=== PATIENT | male | born 1995 | race African-American/Black ===

== ENCOUNTER 2017-04-09 15:12 | Emergency (ER) | payer SELFPAY ==
[~2017-04-09 15:12] MED LIST: Z.0.NO CURRENT MEDS
[2017-04-09 15:14] VITALS: BP 115/70; PULSE 116; RESP 14; TEMP 100; O2SAT 98
[2017-04-09] MEDS ORDERED: ACETAMINOPHEN 500 MG CPLT PO ONE (15:30)
--- NOTE | 2017-04-09 16:00 | RADRPT ---
EXAM DATE/TIME: 04/09/2017 15:46 [place] COMPARISON: No previous studies available for comparison. INDICATIONS : Headache, short of breath MEDICAL HISTORY : None. SURGICAL HISTORY : None. ENCOUNTER: Initial ACUITY: 1 day PAIN SCORE: 0/10 LOCATION: Bilateral chest FINDINGS: PA and lateral views of the chest demonstrate the lungs to be symmetrically aerated without evidence of mass, infiltrate or effusion. The cardiomediastinal contours are unremarkable. Osseous structure s are intact. CONCLUSION: No acute disease. Luis Armando Wilson MD FACR on April 09, 2017 at 15:58 Board Certified Radiologist. This report was verified electronically.
[2017-04-09 16:36] LABS: AUTOMATED NEUTROPHIL # 3.9 TH/MM3 (1.8-7.7); BASOPHIL % 0.3 % (0.0-2.0); EOSINOPHIL % 0.1 % (0.0-4.0); HEMATOCRIT 42.2 % (39.0-51.0); HEMO FLAGS DIFF FINAL; LYMPH % 18.8 % (9.0-44.0); LYMPHOCYTE # 1.1 TH/MM3 (1.0-4.8); MEAN CELL VOLUME 88.9 FL (80.0-100.0); MEAN CORPUSCULAR HEMOGLOBIN 30.7 PG (27.0-34.0); MEAN CORPUSCULAR HGB CONC 34.5 % (32.0-36.0); MONO % 11.5 % (0.0-8.0); NEUT % 69.3 % (16.0-70.0); PLATELET COUNT 196 TH/MM3 (150-450); RED BLOOD COUNT 4.75 MIL/MM3 (4.50-5.90); RED CELL DISTRIBUTION WIDTH 13.2 % (11.6-17.2); WHITE BLOOD COUNT 5.7 TH/MM3 (4.0-11.0)
[2017-04-09 16:53] LABS: BICARBONATE 26.2 MEQ/L (21.0-32.0); POTASSIUM 3.6 MEQ/L (3.5-5.1)
--- NOTE | 2017-04-09 17:37 | PD ---
HPI . Pain with Breathing Chief Complaint: Cold / Flu Symptoms Time Seen by Provider: 17:00 Travel History International Travel<30 days: No Contact w/Intl Traveler<30days: No Traveled to known affect area: No History of Present Illness HPI Pt is a 21yo male who presents to the ED with fever, chills, headache, and pain with breathing, and diaphoresis x 1 day. He recently had cough that has since subsided. Pt denies n/v/d. Pt describes the pain as "it comes in 3's...one attack in sequence to another" and rates the pain as 7/10. The pain with breathing radiates to his lower back. Pt states that tylenol has worked to relieve his headache and fever but he still complains of pain with breathing/ back pain. Pt has no significant PSurgHx. PMHx for antione is positive for Bronchitis x 6-7 years, a heart murmur since childhood, and a previous episode of similar back pain that was diagnosed as strep throat when he was in college in [place]. [facility] Past Medical History Medical History: Denies Significant Hx Cardiovascular Problems: Yes (HEART MURMUR) Diminished Hearing: No Respiratory: Yes (BRONCHITIS) Immunizations Current: Yes Tetanus Vaccination: Unknown Influenza Vaccination: No Past Surgical History Surgical History: No Previous Surgery Social History Alcohol Use: Yes (occ) Tobacco Use: Yes (BLACK AND MILDS) Substance Use: No Allergies-Medications (Allergen,Severity, Reaction): Coded Allergies: No Known Allergies (Unverified Adverse Reaction, Unknown, 04/09/17) Reported Meds & Prescriptions Reported Meds & Active Scripts Active No Active Prescriptions or Reported Medications Review of Systems Except as stated in HPI: all other systems reviewed are Neg General / Constitutional: Positive: Fever, Chills Eyes: No: Diploplia, Blurred Vision, Photophobia, Drainage, Redness, Foreign Body Sensation, Pain, Tearing, Blind Spots, Visual changes, Blindness, Other HENT: Positive: Headaches Cardiovascular: Positive: Diaphoresis Respiratory: Positive: Cough, Pleuritic Pain Gastrointestinal: No: Nausea, Vomiting, Diarrhea, Abdominal Pain, Hematemesis, Hematochezia, Constipation, Changes in Bowel Habits, Indigestion, Dysphagia, Loss of Appetite, Other Genitourinary: No: Urgency, Frequency, Dysuria, Nocturia, Hematuria, Decreased Urinary Output, Oliguria, Hesitancy, Dribbling, Incontinence, Pelvic Pain, Flank Pain, Dyspareunia, Discharge, Dysmenorrhea, Menorrhagia, Metorrhagia, Vaginal Bleeding, Other Musculoskeletal: Positive: Pain Skin: No Rash, No Itching, No Dryness, No Lumps, No Hives, No Change in Pigmentation, No Change in nails, No Alopecia, No Lesions, No Breast Lumps, No Breast Tenderness, No Breast Swelling, No Other Neurologic: No: Weakness, Dizziness, Syncope, Focal Abnormalities, Coordination Problem, Tremor, Ataxia, Headache, Change in Mentation, Slurred Speech, Paresthesia, Incontinence, Seizures, Sensory Disturbance, Other Psychiatric: No: Anxiety, Depression, Suicidal Ideations, Disorder of Thought, Mood Disorder, Substance Abuse, Homicidal Ideation, Other Physical Exam Narrative GENERAL: Awake and alert and oriented. NAD. HEAD: atraumatic, normocephalic. ENT: TM's clear and visible, no exudate or erythema noted. no lymphadenopathy. NECK: supple, no swelling. SKIN: warm, dry, no tinting or cyanosis. CV: RRR no rubs or gallops noted. no murmur appreciated at time of exam. RESPIRATORY: CTA bilat. no rales, wheezes, or rhonchi. good aeration and breath sounds throughout. ABDOMEN: soft, nontender, nondistended, normoactive bowel sounds. PSYCH: appropriate mood and affect. Data Data Last Documented VS Vital Signs Date Time Temp Pulse Resp B/P (MAP) Pulse Ox O2 Delivery O2 Flow Rate FiO2 04/09/17 17:45 100.0 04/09/17 16:45 Room Air 04/09/17 15:14 116 14 98 Orders Orders Chest, Pa & Lat (04/09/17 ) Influenzae A/B Antigen (04/09/17 15:27) Acetaminophen (Tylenol) (04/09/17 15:30) Complete Blood Count With Diff (04/09/17 15:27) Basic Metabolic Panel (Bmp) (04/09/17 15:27) Ed Discharge Order (04/09/17 18:06) Labs Laboratory Tests Test 04/09/17 16:02 White Blood Count 5.7 TH/MM3 Red Blood Count 4.75 MIL/MM3 Hemoglobin 14.6 GM/DL Hematocrit 42.2 % Mean Corpuscular Volume 88.9 FL Mean Corpuscular Hemoglobin 30.7 PG Mean Corpuscular Hemoglobin Concent 34.5 % Red Cell Distribution Width 13.2 % Platelet Count 196 TH/MM3 Mean Platelet Volume 8.2 FL Neutrophils (%) (Auto) 69.3 % Lymphocytes (%) (Auto) 18.8 % Monocytes (%) (Auto) 11.5 % Eosinophils (%) (Auto) 0.1 % Basophils (%) (Auto) 0.3 % Neutrophils # (Auto) 3.9 TH/MM3 Lymphocytes # (Auto) 1.1 TH/MM3 Monocytes # (Auto) 0.7 TH/MM3 Eosinophils # (Auto) 0.0 TH/MM3 Basophils # (Auto) 0.0 TH/MM3 CBC Comment DIFF FINAL Differential Comment Blood Urea Nitrogen 8 MG/DL Creatinine 1.04 MG/DL Random Glucose 80 MG/DL Calcium Level 8.8 MG/DL Sodium Level 138 MEQ/L Potassium Level 3.6 MEQ/L Chloride Level 103 MEQ/L Carbon Dioxide Level 26.2 MEQ/L Anion Gap 9 MEQ/L Estimat Glomerular Filtration Rate 108 ML/MIN MDM Medical Decision Making Medical Screen Exam Complete: Yes Emergency Medical Condition: Yes Differential Diagnosis Influenza vs. costochondritis vs. muscle strain Narrative Course Pt is a 21yo male who presents to the ED with fever, chills, headache, pain with breathing that radiates to his back (7/10), and diaphoresis x 1 day. Patient's fever and headache are relieved with tylenol, but he continues to have the inspiratory pain. Workup for this patient included CBC, CMP, CXR, and influenza panel. So far the workup has been negative and awaiting influenza results. Will monitor patient status and treat symptoms. Diagnosis Primary Impression: Viral syndrome Patient Instructions: General Instructions, Viral Syndrome (DC) Additional Instructions: Lots of fluids. Tylenol and ibuprofen as needed for fever and body aches. Scripts No Active Prescriptions or Reported Meds Disposition: 01 DISCHARGE HOME Condition: Stable Nancy Holguin MD Apr 09, 2017 17:37
[2017-04-09 17:45] VITALS: TEMP 100
[2017-04-09 19:01] VITALS: BP 115/76
== END 2017-04-09 18:55 | disposition home or self-care (01) ==
LOC: NEPD 15:12
DX: B34.9 Viral infection, unspecified (principal); R51 Headache; R05 Cough; R61 Generalized hyperhidrosis; M54.9 Dorsalgia, unspecified
CPT/HCPCS: 71020; 80048; 85025; 87804; 99284

== ENCOUNTER 2017-04-13 16:36 | Emergency (ER) | payer SELFPAY ==
[~2017-04-13] VITALS: Ht 170.2 cm; Wt 70.0 kg
[2017-04-13 16:38] VITALS: BP 129/71; PULSE 73; RESP 14; TEMP 99.7; O2SAT 97
[2017-04-14] MEDS ORDERED: TYLE325T PO (11:57)
[2017-04-14] MEDS ORDERED: PENI500T PO (11:57)
== END 2017-04-13 19:13 | disposition left against medical advice (07) ==
LOC: NED 16:36
DX: J00 Acute nasopharyngitis [common cold] (principal)
CPT/HCPCS: 99281

== ENCOUNTER 2017-04-14 10:11 | Emergency (ER) | payer SELFPAY ==
[~2017-04-14] VITALS: Ht 170.2 cm; Wt 71.0 kg
[2017-04-14 10:13] VITALS: BP 123/72; PULSE 75; RESP 16; TEMP 98.4; O2SAT 98
[2017-04-14] MEDS ORDERED: IBUPROFEN SUSP 100 MG/5 ML UDC PO ONE (10:45)
[2017-04-14] MEDS ORDERED: DEXAMETHASONE SOD PHOS 4 MG/ML VIAL IM ONE (10:45)
--- NOTE | 2017-04-14 10:48 | PD ---
HPI Chief Complaint: ENT Complaint Time Seen by Provider: 10:31 Travel History International Travel<30 days: No Contact w/Intl Traveler<30days: No Traveled to known affect area: No History of Present Illness HPI 21yo M with no PMH presents to the ED with throat pain for 2 days. Said he had fever today of 103F and took acetaminophen 2 hours ago. Pt was seen here on and diagnosed with viral syndrome and said the headache and cough had resolved. Pt currently only complaining of throat pain and odynophagia. Denies any cough, chest pain, sob, n/v, abdominal pain, focal weakness or numbness. Said he gets this every year around the same time for 3 years and is suppose to have his tonsils remove but did not. PFSH Past Medical History Hx Anticoagulant Therapy: No Cardiovascular Problems: No Chemotherapy: No Cerebrovascular Accident: No Diabetes: No Diminished Hearing: No Respiratory: No Immunizations Current: Yes Social History Alcohol Use: Yes (occ) Tobacco Use: Yes (BLACK AND MILDS) Substance Use: No Allergies-Medications (Allergen,Severity, Reaction): Coded Allergies: No Known Allergies (Unverified Adverse Reaction, Unknown, 04/14/17) Reported Meds & Prescriptions Reported Meds & Active Scripts Active Tylenol (Acetaminophen) 325 Mg Tab 650 Mg PO Q6H PRN Penicillin V Potassium 500 Mg Tab 500 Mg PO BID 10 Days Review of Systems Except as stated in HPI: all other systems reviewed are Neg Physical Exam Narrative GENERAL: 21yo M in mild distress. SKIN: Focused skin assessment warm/dry. HEAD: Atraumatic. Normocephalic. EYES: Pupils equal and round. No scleral icterus. No injection or drainage. ENT: Throat: +Left tonsillar edema and exudate. +Erythema. Uvula midline. Patent airway. NECK:+TTP left cervical lymphadenopathy. CARDIOVASCULAR: Regular rate and rhythm. No murmur appreciated. RESPIRATORY: No accessory muscle use. Clear to auscultation. Breath sounds equal bilaterally. GASTROINTESTINAL: Abdomen soft, non-tender, nondistended. MUSCULOSKELETAL: No obvious deformities. No clubbing. No cyanosis. No edema. NEUROLOGICAL: Awake and alert. No obvious cranial nerve deficits. Motor grossly within normal limits. Normal speech. PSYCHIATRIC: Appropriate mood and affect; insight and judgment normal. Data Data Last Documented VS Vital Signs Date Time Temp Pulse Resp B/P (MAP) Pulse Ox O2 Delivery O2 Flow Rate FiO2 04/14/17 10:28 16 04/14/17 10:13 98.4 75 123/72 (89) 98 Room Air Orders Orders Group A Rapid Strep Screen (04/14/17 10:41) Dexamethasone Inj (Decadron Inj) (04/14/17 10:45) Ibuprofen Liq (Motrin Liq) (04/14/17 10:45) Strep Culture (Group A) (04/14/17 10:45) MDM Medical Decision Making Medical Screen Exam Complete: Yes Emergency Medical Condition: Yes Differential Diagnosis Strep pharyngitis vs. viral pharyngitis Narrative Course 21yo M with throat pain and fever for 2 days. Vital signs normal. Pt given dexamethasone and ibuprofen and reevaluated at bedside. States he feels much better and can swallow now. Group A strep negative. However, pt meets all 4 CENTER criteria so will cover with penicillin. He is nontoxic appearing and tolerating PO. Return precautions given. Diagnosis Primary Impression: Pharyngitis Qualified Codes: J02.9 - Acute pharyngitis, unspecified Referrals: Jason Zhang MD as needed Patient Instructions: General Instructions Departure Forms: Tests/Procedures Additional Instructions: Please follow up with ENT as needed or primary care physician. Return to the ED if symptoms worsen. Med/Other Pt SpecificInfo: Prescription(s) given Scripts Acetaminophen (Tylenol) 325 Mg Tab 650 MG PO Q6H Y for PAIN SCALE 1 TO 4, #20 TAB 0 Refills Prov: Abi Rosado 04/14/17 Penicillin V Potassium (Penicillin V Potassium) 500 Mg Tab 500 MG PO BID for Infection for 10 Days, #20 TAB 0 Refills Prov: Abi Rosado 04/14/17 Disposition: 01 DISCHARGE HOME Condition: Stable Abi Rosado Apr 14, 2017 10:48
[2017-04-14] MEDS ORDERED: PENI500T PO (11:57)
[2017-04-14] MEDS ORDERED: TYLE325T PO (11:57)
[2017-04-14 12:15] VITALS: RESP 16
== END 2017-04-14 12:14 | disposition home or self-care (01) ==
LOC: NEPD 10:11
DX: J02.9 Acute pharyngitis, unspecified (principal); R50.9 Fever, unspecified; Z72.0 Tobacco use
CPT/HCPCS: 87081; 87880; 96372; 99284; J1100

== ENCOUNTER 2017-06-05 01:59 | Emergency (ER) | payer SELFPAY ==
[~2017-06-05] VITALS: Ht 170.2 cm; Wt 65.0 kg
[~2017-06-05 01:59] MED LIST changes: +PENI500T PO; +TYLE325T PO; -Z.0.NO CURRENT MEDS
[2017-06-05 02:12] VITALS: BP 134/69; PULSE 80; RESP 16; TEMP 99.1; O2SAT 98
--- NOTE | 2017-06-05 04:13 | PD ---
HPI Chief Complaint: ENT Complaint Time Seen by Provider: 04:04 Travel History International Travel<30 days: No Contact w/Intl Traveler<30days: No Traveled to known affect area: No History of Present Illness HPI 21-year-old black male presents to emergency department with a 2 day history of subjective fever and chills and sore throat. He also has noted some swollen glands in his neck. He denies any shortness of breath or wheezing. No nausea vomiting. No abdominal pain or diarrhea. No rashes or lesions. Symptoms are mild to moderate. No alleviating factors. Exacerbated by coughing. PFSH Past Medical History Medical History: Denies Significant Hx Hx Anticoagulant Therapy: No Cardiovascular Problems: No Chemotherapy: No Cerebrovascular Accident: No Diabetes: No Diminished Hearing: No Respiratory: No Immunizations Current: Yes Tetanus Vaccination: Unknown Influenza Vaccination: Yes Past Surgical History Surgical History: No Previous Surgery Social History Alcohol Use: Yes (occ) Tobacco Use: Yes (BLACK AND MILDS) Substance Use: No Allergies-Medications (Allergen,Severity, Reaction): Coded Allergies: No Known Allergies (Unverified Adverse Reaction, Unknown, 06/05/17) Reported Meds & Prescriptions Reported Meds & Active Scripts Active Tylenol (Acetaminophen) 325 Mg Tab 650 Mg PO Q6H PRN Penicillin V Potassium 500 Mg Tab 500 Mg PO BID 10 Days Review of Systems Except as stated in HPI: all other systems reviewed are Neg Physical Exam Narrative GENERAL: Well-developed, well-nourished in no acute distress. Nontoxic appearing. HEAD: Normocephalic, atraumatic. EYES: Pupils equal round and reactive. Extraocular motions intact. No scleral icterus. No injection or drainage. ENT: TMs clear without erythema. The external auditory canals clear. Nose: clear . Posterior pharynx is pink and moist. No tonsillar edema or exudate. Uvula midline. Airway patent. NECK: Trachea midline.Supple, nontender, moves head freely. No central bony tenderness or spasm. Positive posterior cervical adenopathy CARDIOVASCULAR: Regular rate and rhythm without murmurs, gallops, or rubs. RESPIRATORY: Clear to auscultation. Breath sounds equal bilaterally. No wheezes , rales, or rhonchi. GASTROINTESTINAL: Abdomen soft, non-tender, nondistended. No hepato-splenomegaly , or palpable masses. No guarding. EXTREMITIES: No clubbing, cyanosis, or edema. No joint tenderness, effusion, or edema noted. BACK: Nontender without deformity or crepitance. No flank tenderness. Data Data Last Documented VS Vital Signs Date Time Temp Pulse Resp B/P (MAP) Pulse Ox O2 Delivery O2 Flow Rate FiO2 06/05/17 02:12 99.1 80 16 134/69 (90) 98 Room Air Orders Orders Ed Discharge Order (06/05/17 04:09) Ibuprofen (Motrin) (06/05/17 04:15) MDM Medical Decision Making Medical Screen Exam Complete: Yes Emergency Medical Condition: Yes Medical Record Reviewed: Yes Differential Diagnosis MDM: High Differential diagnoses: Pneumonia, bronchitis, URI, influenza, strep throat, influenza-like illness Narrative Course Patient is given Motrin 600 mg by mouth. His exam is reassuring. He does not appear to be toxic. He has only a few posterior cervical lymph nodes. Otherwise his exam is unremarkable. He looks well-hydrated. This is influenza-like illness. Diagnosis Primary Impression: Influenza-like illness Patient Instructions: General Instructions Departure Forms: Tests/Procedures, Work Release Special Instructions: No work 3 days. Additional Instructions: Rest. Increase fluids. Robitussin-DM. 3 Advil every 6 hours. Followup with your Dr. in one week. Return to the ER for any problems. Med/Other Pt SpecificInfo: No Meds Exist/No RX given Disposition: 01 DISCHARGE HOME Condition: Stable Jason Yanez Jun 05, 2017 04:13
[2017-06-05] MEDS ORDERED: IBUPROFEN 600 MG TAB PO ONE (04:15)
== END 2017-06-05 04:23 | disposition home or self-care (01) ==
LOC: NEPD 01:59
DX: J11.1 Influenza due to unidentified influenza virus with other respiratory manifestations (principal); Z72.0 Tobacco use
CPT/HCPCS: 99283

== ENCOUNTER 2017-11-12 18:29 | Emergency (ER) | payer SELFPAY ==
[~2017-11-12] VITALS: Ht 170.2 cm; Wt 75.0 kg
[2017-11-12 18:40] VITALS: BP 120/65; PULSE 85; RESP 16; TEMP 99.2; O2SAT 99
--- NOTE | 2017-11-12 20:30 | PD ---
HPI Chief Complaint: ENT Complaint Time Seen by Provider: 20:18 Travel History International Travel<30 days: No Contact w/Intl Traveler<30days: No Traveled to known affect area: No History of Present Illness HPI 22-year-old male presents to the emergency room for evaluation of sore throat for the past 2 days. Pain is moderate. No aggravating factors. He has associated pain in the right neck region that is worse when he turns his neck. He has not taken anything for symptoms. No associated fever, chills, nausea, vomiting, cough, congestion, or earache. No chronic medical conditions or daily medications. PFSH Past Medical History Hx Anticoagulant Therapy: No Cardiovascular Problems: No Chemotherapy: No Cerebrovascular Accident: No Diabetes: No Diminished Hearing: No Respiratory: No Immunizations Current: Yes Social History Alcohol Use: Yes (occ) Tobacco Use: Yes (BLACK AND MILDS) Substance Use: No Allergies-Medications (Allergen,Severity, Reaction): Coded Allergies: No Known Allergies (Unverified Adverse Reaction, Unknown, 06/05/17) Reported Meds & Prescriptions Reported Meds & Active Scripts Active Tylenol (Acetaminophen) 325 Mg Tab 650 Mg PO Q6H PRN Penicillin V Potassium 500 Mg Tab 500 Mg PO BID 10 Days Review of Systems Except as stated in HPI: all other systems reviewed are Neg Physical Exam Narrative GENERAL: Well-nourished, well-developed male in no acute distress. Afebrile. Ambulatory. SKIN: Focused skin assessment warm/dry. HEAD: Normocephalic. EYES: No scleral icterus. No injection or drainage. NECK: Supple, trachea midline. No JVD or lymphadenopathy. ENT: Mucosa pink and moist. Moderate erythema without edema. Scant exudates. No uvular edema. No uvular, palatal, or tonsillar deviation. Airway patent. Nasal turbinates appear normal without nasal blood, purulent drainage or septal hematoma. EARS: Bilateral pinnae and external canals appear within normal limits. Bilateral tympanic membranes without erythema, dullness or perforation. CARDIOVASCULAR: Regular rate and rhythm without murmurs, gallops, or rubs. RESPIRATORY: Breath sounds equal bilaterally. No accessory muscle use. No crackles, rales, wheezes, or rhonchi. Data Data Last Documented VS Vital Signs Date Time Temp Pulse Resp B/P (MAP) Pulse Ox O2 Delivery O2 Flow Rate FiO2 11/12/17 18:40 99.2 85 16 120/65 (83) 99 Orders Orders Group A Rapid Strep Screen (11/12/17 20:32) MDM Medical Decision Making Medical Screen Exam Complete: Yes Emergency Medical Condition: Yes Medical Record Reviewed: Yes Differential Diagnosis Strep, flu, viral pharyngitis, tonsillitis, tonsil stones Narrative Course 22-year-old male presents to the emergency room for evaluation of sore throat for the past 2 days. No associated symptoms. Physical exam reveals moderate erythema of the pharynx with scant exudates but without edema. Airway patent. Vital signs stable. Rapid strep negative. Patient told to take ibuprofen for pain. Will follow up with PCP. He understands and agrees to plan. Diagnosis Primary Impression: Viral pharyngitis Referrals: Primary Care Physician Additional Instructions: Rest and drink plenty of fluids. Ibuprofen with food as directed, as needed for pain. Follow up with a primary care physician. Return to emergency room for worsening symptoms, as discussed. Med/Other Pt SpecificInfo: Prescription(s) given Disposition: 01 DISCHARGE HOME Condition: Stable Jade Augustin Nov 12, 2017 20:30
== END 2017-11-12 21:33 | disposition home or self-care (01) ==
LOC: NEPK 18:29
DX: J02.8 Acute pharyngitis due to other specified organisms (principal); B97.89 Other viral agents as the cause of diseases classified elsewhere; M54.2 Cervicalgia
CPT/HCPCS: 87081; 87880; 99283